=== PATIENT | male | born 1950 | race Caucasian/White ===

== ENCOUNTER → 2023-08-04 15:05 | Outpatient (CLI) | payer MEDICARE, BC, OTHER, SELFPAY ==
--- NOTE | 2023-08-04 15:12 | DI.MRI.S_ITS ---
PROCEDURE: MR ABDOMEN WO/W CON INDICATIONS: Abnormal results of liver function studies TECHNIQUE: Coronal HASTE, axial 2D FLASH in- and [id number]; axial breath-hold T2 FSE with fat saturation from the hepatic dome to the iliac crests. Oblique coronal thin-slice and radial thick slab HASTE through the biliary system. Dynamic axial VIBE during administration of contrast. Post-contrast coronal VIBE or 2D FLASH with fat saturation from the hepatic dome to the iliac crests. Optional diffusion weighted imaging and ADC may be performed. COMPARISON: None. FINDINGS: Image quality: Diagnostic. Gallbladder: Surgically absent. Biliary ducts: Multiple filling defects within the distal common bile duct, largest measuring 9 mm (series 5, image 29, series 3, image 18). Mild peribiliary enhancement of the common bile duct. Pancreas: No ductal dilation. OTHER: Lung bases: Unremarkable. Liver: No solid mass. Mildly heterogeneous enhancement of the liver. Spleen: Size is within normal limits. Adrenal Glands: No adrenal nodules. Kidneys and Ureters: No hydronephrosis. No solid mass. No complex renal cystic lesion which requires follow up. Stomach and Bowel: Normal colonic caliber, without significant wall thickening. Peritoneum: No abnormal intraperitoneal fluid. No free air. Ventral Wall: No hernia. Abdominal Nodes: No retroperitoneal or mesenteric adenopathy by size criteria. Vessels: Aorta and inferior vena cava are normal in size. Bones: No aggressive osseous abnormality. IMPRESSION: Multiple choledocholithiasis, largest measuring 9 mm. Circumferential enhancement of the distal common bile duct. This is probably inflammatory, less likely related to periductal cholangiocarcinoma or infection. Recommend GI referral for direct visualization and intervention. Mildly heterogeneous enhancement of the liver, which could be due to contrast timing or ascending cholangitis. Correlate with symptoms. Dictated by: Krystian Rand M.D. on 08/04/2023 at 16:33 Approved by: Krystian Rand M.D. on 08/04/2023 at 16:39
== END ==
PROVIDERS: PCP Internal Medicine; Referring Provider Internal Medicine; Visit Provider Internal Medicine
DX: K80.50 Calculus of bile duct without cholangitis or cholecystitis without obstruction (principal); R94.5 Abnormal results of liver function studies; Z90.49 Acquired absence of other specified parts of digestive tract
CPT/HCPCS: 74183